=== PATIENT | male | born 1985 | race Two or more races ===

== ENCOUNTER 2023-05-12 13:00 | Emergency (ER) | payer SELFPAY ==
[~2023-05-12] VITALS: Ht 182.9 cm; Wt 81.8 kg
[2023-05-12 17:55] VITALS: BP 107/77; PULSE 91; RESP 18; TEMP 98.1; O2SAT 96
[2023-05-12] MEDS ORDERED: HYDROcodone-ACET 5/325MG TAB PO ONE (18:00)
[2023-05-12] MEDS ORDERED: IBUP-1455 PO (19:18)
[2023-05-12] MEDS ORDERED: CYCL-837 PO (19:18)
== END 2023-05-12 19:32 | disposition home or self-care (01) ==
LOC: ER 13:00 → EDBD 13:00 → ER 19:32
DX: S22.32XA Fracture of one rib, left side, initial encounter for closed fracture (principal); X58.XXXA Exposure to other specified factors, initial encounter; Y93.89 Activity, other specified; Y92.89 Other specified places as the place of occurrence of the external cause; Y99.8 Other external cause status
CPT/HCPCS: 71101; 93005